=== PATIENT | male | born 1965 | race Caucasian/White ===

== ENCOUNTER 2016-05-06 10:23 | Inpatient (IN) | payer MEDICARE, MEDICAID ==
[2016-05-06] MEDS ORDERED: Scopolamine 1.5 MG Transdermal Patch TOP SCH (17:00)
[2016-05-06] MEDS ORDERED: cefTAZidime 1 GM Vial IV SCH (17:00)
[2016-05-06] MEDS ORDERED: Vancomycin 1 GM SDV IV SCH (17:00)
[2016-05-06] MEDS: Sodium Chloride 0.9% 10 ML Syringe IV PRN ×3 (17:54→23:10)
[2016-05-06] MEDS: Omeprazole 20 MG Cap.CR PO SCH (17:57)
[2016-05-06] MEDS: Cholecalciferol (Vitamin D3) 1,000 Unit Tab PO SCH (17:57)
[2016-05-06] MEDS: metFORMIN 500 MG Tab PO SCH (17:57)
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
[2016-05-06] MEDS: Oxybutynin 5 MG Tab PO SCH (20:06)
[2016-05-06] MEDS: ClonazePAM 0.5 MG Tab PO SCH (20:06)
[2016-05-06] MEDS: Baclofen 10 MG Tab PO SCH (20:06)
[2016-05-07] MEDS: MAG CARB IRR SCH (09:15)
[2016-05-07] MEDS: metFORMIN 500 MG Tab PO SCH ×2 (09:15→18:05)
[2016-05-07] MEDS: Ferrous Sulfate 325 MG Tab PO SCH (09:15)
[2016-05-07] MEDS: Omeprazole 20 MG Cap.CR PO SCH ×2 (09:15→18:05)
[2016-05-07] MEDS: CITRIC AC IRR SCH (09:15)
[2016-05-07] MEDS: GLUCONOLACT IRR SCH (09:15)
[2016-05-07] MEDS: ClonazePAM 0.5 MG Tab PO SCH ×4 (09:16→19:38)
[2016-05-07] MEDS: Oxybutynin 5 MG Tab PO SCH ×4 (09:16→19:38)
[2016-05-07] MEDS: Baclofen 10 MG Tab PO SCH ×4 (09:16→19:38)
[2016-05-07] MEDS: Aspirin 81 MG Tab.EC PO SCH (09:16)
[2016-05-07] MEDS: Pravastatin 20 MG Tab PO SCH (09:17)
[2016-05-07] MEDS: Multivitamin Tab PO SCH (09:17)
[2016-05-07] MEDS: Cholecalciferol (Vitamin D3) 1,000 Unit Tab PO SCH ×2 (09:18→18:04)
[2016-05-07] MEDS: Sodium Chloride 0.9% 10 ML Syringe FLUSH PRN ×5 (09:28→21:43)
[2016-05-07] MEDS: Calcium Carbonate 500 MG Tab.Chew PO PRN (13:25)
[2016-05-08] MEDS: Sodium Chloride 0.9% 10 ML Syringe FLUSH PRN ×8 (02:55→23:19)
[2016-05-08] MEDS: Omeprazole 20 MG Cap.CR PO SCH ×2 (08:22→17:41)
[2016-05-08] MEDS: Ferrous Sulfate 325 MG Tab PO SCH (08:23)
[2016-05-08] MEDS: metFORMIN 500 MG Tab PO SCH ×2 (08:23→17:41)
[2016-05-08] MEDS: Oxybutynin 5 MG Tab PO SCH ×4 (08:24→19:25)
[2016-05-08] MEDS: Multivitamin Tab PO SCH (08:24)
[2016-05-08] MEDS: ClonazePAM 0.5 MG Tab PO SCH ×4 (08:24→19:25)
[2016-05-08] MEDS: Aspirin 81 MG Tab.EC PO SCH (08:24)
[2016-05-08] MEDS: Topiramate 100 MG Tab PO SCH (08:25)
[2016-05-08] MEDS: Cholecalciferol (Vitamin D3) 1,000 Unit Tab PO SCH ×2 (08:25→17:41)
[2016-05-08] MEDS: Baclofen 10 MG Tab PO SCH ×4 (08:26→19:25)
[2016-05-08] MEDS: Pravastatin 20 MG Tab PO SCH (08:26)
[2016-05-08 20:49] LABS: CHLORIDE,CL 108 mmol/L (98-107); SODIUM,NA 142 mmol/L (136-145)
[2016-05-09] MEDS: Sodium Chloride 0.9% 10 ML Syringe FLUSH PRN ×4 (05:11→22:35)
[2016-05-09] MEDS: metFORMIN 500 MG Tab PO SCH ×2 (09:00→17:34)
[2016-05-09] MEDS: Cholecalciferol (Vitamin D3) 1,000 Unit Tab PO SCH ×2 (09:00→17:34)
[2016-05-09] MEDS: Oxybutynin 5 MG Tab PO SCH ×4 (09:01→20:26)
[2016-05-09] MEDS: Pravastatin 20 MG Tab PO SCH (09:01)
[2016-05-09] MEDS: Aspirin 81 MG Tab.EC PO SCH (09:01)
[2016-05-09] MEDS: Omeprazole 20 MG Cap.CR PO SCH ×2 (09:02→17:34)
[2016-05-09] MEDS: Multivitamin Tab PO SCH (09:02)
[2016-05-09] MEDS: Ferrous Sulfate 325 MG Tab PO SCH (09:02)
[2016-05-09] MEDS: Baclofen 10 MG Tab PO SCH ×4 (09:03→20:26)
[2016-05-09] MEDS: ClonazePAM 0.5 MG Tab PO SCH ×4 (09:03→20:27)
[2016-05-09] MEDS: CITRIC AC IRR SCH (09:06)
[2016-05-09] MEDS: GLUCONOLACT IRR SCH (09:06)
[2016-05-09] MEDS: MAG CARB IRR SCH (09:06)
[2016-05-10] MEDS: Pravastatin 20 MG Tab PO SCH (08:53)
[2016-05-10] MEDS: Ferrous Sulfate 325 MG Tab PO SCH (08:54)
[2016-05-10] MEDS: Omeprazole 20 MG Cap.CR PO SCH ×2 (08:54→17:28)
[2016-05-10] MEDS: Aspirin 81 MG Tab.EC PO SCH (08:55)
[2016-05-10] MEDS: Cholecalciferol (Vitamin D3) 1,000 Unit Tab PO SCH ×2 (08:55→17:28)
[2016-05-10] MEDS: metFORMIN 500 MG Tab PO SCH ×2 (08:55→17:28)
[2016-05-10] MEDS: Multivitamin Tab PO SCH (08:55)
[2016-05-10] MEDS: Baclofen 10 MG Tab PO SCH ×4 (08:55→20:14)
[2016-05-10] MEDS: ClonazePAM 0.5 MG Tab PO SCH ×4 (08:56→20:15)
[2016-05-10] MEDS: Oxybutynin 5 MG Tab PO SCH ×4 (08:57→20:13)
[2016-05-10] MEDS: Sodium Chloride 0.9% 10 ML Syringe FLUSH PRN ×3 (14:09→22:01)
[2016-05-11] MEDS: Sodium Chloride 0.9% 10 ML Syringe FLUSH PRN ×7 (03:56→22:28)
[2016-05-11] MEDS: Baclofen 10 MG Tab PO SCH ×4 (08:50→20:49)
[2016-05-11] MEDS: Omeprazole 20 MG Cap.CR PO SCH ×2 (08:55→17:03)
[2016-05-11] MEDS: Ferrous Sulfate 325 MG Tab PO SCH (08:55)
[2016-05-11] MEDS: Multivitamin Tab PO SCH (08:55)
[2016-05-11] MEDS: Oxybutynin 5 MG Tab PO SCH ×4 (08:56→20:49)
[2016-05-11] MEDS: ClonazePAM 0.5 MG Tab PO SCH ×4 (08:56→20:49)
[2016-05-11] MEDS: Pravastatin 20 MG Tab PO SCH (08:56)
[2016-05-11] MEDS: Cholecalciferol (Vitamin D3) 1,000 Unit Tab PO SCH ×2 (08:56→17:03)
[2016-05-11] MEDS: Aspirin 81 MG Tab.EC PO SCH (08:57)
[2016-05-11] MEDS: metFORMIN 500 MG Tab PO SCH ×2 (09:09→17:03)
[2016-05-11] MEDS: MAG CARB IRR SCH (09:09)
[2016-05-11] MEDS: CITRIC AC IRR SCH (09:09)
[2016-05-11] MEDS: GLUCONOLACT IRR SCH (09:09)
[2016-05-11] MEDS: Vancomycin 1.5 GM in Sodium Chloride 0.9% 500 ML IV SCH (21:56)
[2016-05-12] MEDS: Sodium Chloride 0.9% 10 ML Syringe FLUSH PRN ×4 (06:35→22:01)
[2016-05-12] MEDS: metFORMIN 500 MG Tab PO SCH ×2 (08:55→18:27)
[2016-05-12] MEDS: Omeprazole 20 MG Cap.CR PO SCH ×2 (08:55→18:27)
[2016-05-12] MEDS: Ferrous Sulfate 325 MG Tab PO SCH (08:55)
[2016-05-12] MEDS: Aspirin 81 MG Tab.EC PO SCH (08:55)
[2016-05-12] MEDS: Baclofen 10 MG Tab PO SCH ×4 (08:55→19:30)
[2016-05-12] MEDS: ClonazePAM 0.5 MG Tab PO SCH ×4 (08:55→19:30)
[2016-05-12] MEDS: Pravastatin 20 MG Tab PO SCH (08:56)
[2016-05-12] MEDS: Multivitamin Tab PO SCH (08:57)
[2016-05-12] MEDS: Topiramate 100 MG Tab PO SCH (08:57)
[2016-05-12] MEDS: Cholecalciferol (Vitamin D3) 1,000 Unit Tab PO SCH ×2 (08:57→18:27)
[2016-05-12] MEDS: Oxybutynin 5 MG Tab PO SCH ×4 (08:58→19:30)
[2016-05-12] MEDS: Vancomycin 1.5 GM in Sodium Chloride 0.9% 500 ML IV SCH (15:42)
[2016-05-12] MEDS ORDERED: Calcium Carbonate 750 MG Tab.Chew PO PRN (18:30)
[2016-05-12] MEDS: Calcium Carbonate 500 MG Tab.Chew PO PRN (18:36)
[2016-05-13] MEDS: Multivitamin Tab PO SCH (09:55)
[2016-05-13] MEDS: Ferrous Sulfate 325 MG Tab PO SCH (09:55)
[2016-05-13] MEDS: metFORMIN 500 MG Tab PO SCH ×2 (09:55→17:01)
[2016-05-13] MEDS: Aspirin 81 MG Tab.EC PO SCH (09:57)
[2016-05-13] MEDS: Pravastatin 20 MG Tab PO SCH (09:58)
[2016-05-13] MEDS: Baclofen 10 MG Tab PO SCH ×4 (09:58→20:19)
[2016-05-13] MEDS: Oxybutynin 5 MG Tab PO SCH ×4 (09:58→20:19)
[2016-05-13] MEDS: ClonazePAM 0.5 MG Tab PO SCH ×4 (09:59→20:19)
[2016-05-13] MEDS: Cholecalciferol (Vitamin D3) 1,000 Unit Tab PO SCH ×2 (09:59→17:01)
[2016-05-13] MEDS: MAG CARB IRR SCH (10:23)
[2016-05-13] MEDS: Omeprazole 20 MG Cap.CR PO SCH ×2 (10:23→16:56)
[2016-05-13] MEDS: GLUCONOLACT IRR SCH (10:23)
[2016-05-13] MEDS: CITRIC AC IRR SCH (10:23)
[2016-05-13] MEDS: Vancomycin 1.5 GM in Sodium Chloride 0.9% 500 ML IV SCH (10:42)
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
[2016-05-14] MEDS: Vancomycin 1.5 GM in Sodium Chloride 0.9% 500 ML IV SCH ×2 (04:25→22:27)
[2016-05-14] MEDS: Sodium Chloride 0.9% 10 ML Syringe FLUSH PRN ×2 (07:49→14:56)
[2016-05-14] MEDS: Cholecalciferol (Vitamin D3) 1,000 Unit Tab PO SCH ×2 (07:53→17:32)
[2016-05-14] MEDS: Oxybutynin 5 MG Tab PO SCH ×4 (07:53→19:49)
[2016-05-14] MEDS: Ferrous Sulfate 325 MG Tab PO SCH (07:54)
[2016-05-14] MEDS: Baclofen 10 MG Tab PO SCH ×4 (07:54→19:49)
[2016-05-14] MEDS: Multivitamin Tab PO SCH (07:54)
[2016-05-14] MEDS: Pravastatin 20 MG Tab PO SCH (07:55)
[2016-05-14] MEDS: Omeprazole 20 MG Cap.CR PO SCH ×2 (07:55→17:32)
[2016-05-14] MEDS: metFORMIN 500 MG Tab PO SCH ×2 (07:55→17:31)
[2016-05-14] MEDS: ClonazePAM 0.5 MG Tab PO SCH ×4 (07:55→19:49)
[2016-05-14] MEDS: Aspirin 81 MG Tab.EC PO SCH (07:56)
[2016-05-15] MEDS: Sodium Chloride 0.9% 10 ML Syringe FLUSH PRN ×5 (01:00→22:01)
[2016-05-15] MEDS: Baclofen 10 MG Tab PO SCH ×4 (08:56→19:41)
[2016-05-15] MEDS: Ferrous Sulfate 325 MG Tab PO SCH (08:56)
[2016-05-15] MEDS: metFORMIN 500 MG Tab PO SCH ×2 (08:58→17:27)
[2016-05-15] MEDS: Omeprazole 20 MG Cap.CR PO SCH ×2 (08:58→17:27)
[2016-05-15] MEDS: Aspirin 81 MG Tab.EC PO SCH (08:58)
[2016-05-15] MEDS: Cholecalciferol (Vitamin D3) 1,000 Unit Tab PO SCH ×2 (08:58→17:27)
[2016-05-15] MEDS: ClonazePAM 0.5 MG Tab PO SCH ×4 (08:58→19:41)
[2016-05-15] MEDS: Pravastatin 20 MG Tab PO SCH (08:58)
[2016-05-15] MEDS: Multivitamin Tab PO SCH (08:58)
[2016-05-15] MEDS: Oxybutynin 5 MG Tab PO SCH ×4 (08:59→19:42)
[2016-05-15] MEDS: CITRIC AC IRR SCH (09:00)
[2016-05-15] MEDS: MAG CARB IRR SCH (09:00)
[2016-05-15] MEDS: Topiramate 100 MG Tab PO SCH (09:00)
[2016-05-15] MEDS: GLUCONOLACT IRR SCH (09:00)
[2016-05-15] MEDS: Vancomycin 1.5 GM in Sodium Chloride 0.9% 500 ML IV SCH (16:13)
[2016-05-15] MEDS: Calcium Carbonate 500 MG Tab.Chew PO PRN (19:42)
[2016-05-16] MEDS: Sodium Chloride 0.9% 10 ML Syringe FLUSH PRN ×6 (06:03→21:59)
[2016-05-16] MEDS: Oxybutynin 5 MG Tab PO SCH ×4 (08:36→19:42)
[2016-05-16] MEDS: Pravastatin 20 MG Tab PO SCH (08:36)
[2016-05-16] MEDS: Omeprazole 20 MG Cap.CR PO SCH ×2 (08:37→17:10)
[2016-05-16] MEDS: Multivitamin Tab PO SCH (08:37)
[2016-05-16] MEDS: ClonazePAM 0.5 MG Tab PO SCH ×4 (08:37→19:39)
[2016-05-16] MEDS: Ferrous Sulfate 325 MG Tab PO SCH (08:37)
[2016-05-16] MEDS: Aspirin 81 MG Tab.EC PO SCH (08:37)
[2016-05-16] MEDS: Baclofen 10 MG Tab PO SCH ×4 (08:37→19:41)
[2016-05-16] MEDS: Cholecalciferol (Vitamin D3) 1,000 Unit Tab PO SCH ×2 (08:37→17:10)
[2016-05-16] MEDS: metFORMIN 500 MG Tab PO SCH ×2 (08:38→17:10)
[2016-05-16] MEDS: Vancomycin 1.5 GM in Sodium Chloride 0.9% 500 ML IV SCH (10:58)
[2016-05-17] MEDS: Vancomycin 1.5 GM in Sodium Chloride 0.9% 500 ML IV SCH ×2 (04:17→21:43)
[2016-05-17] MEDS: Sodium Chloride 0.9% 10 ML Syringe FLUSH PRN ×3 (04:17→07:37)
[2016-05-17] MEDS: Ferrous Sulfate 325 MG Tab PO SCH (08:56)
[2016-05-17] MEDS: ClonazePAM 0.5 MG Tab PO SCH ×4 (08:56→19:24)
[2016-05-17] MEDS: Aspirin 81 MG Tab.EC PO SCH (08:56)
[2016-05-17] MEDS: Pravastatin 20 MG Tab PO SCH (08:56)
[2016-05-17] MEDS: Omeprazole 20 MG Cap.CR PO SCH ×2 (08:56→17:12)
[2016-05-17] MEDS: Multivitamin Tab PO SCH (08:56)
[2016-05-17] MEDS: Oxybutynin 5 MG Tab PO SCH ×4 (08:57→19:24)
[2016-05-17] MEDS: metFORMIN 500 MG Tab PO SCH ×2 (08:57→17:12)
[2016-05-17] MEDS: Cholecalciferol (Vitamin D3) 1,000 Unit Tab PO SCH ×2 (08:57→17:12)
[2016-05-17] MEDS: Baclofen 10 MG Tab PO SCH ×4 (08:58→19:24)
[2016-05-17] MEDS: GLUCONOLACT IRR SCH (09:11)
[2016-05-17] MEDS: MAG CARB IRR SCH (09:11)
[2016-05-17] MEDS: CITRIC AC IRR SCH (09:11)
[2016-05-18] MEDS: Aspirin 81 MG Tab.EC PO SCH (09:01)
[2016-05-18] MEDS: Multivitamin Tab PO SCH (09:01)
[2016-05-18] MEDS: metFORMIN 500 MG Tab PO SCH ×2 (09:01→17:00)
[2016-05-18] MEDS: ClonazePAM 0.5 MG Tab PO SCH ×4 (09:01→19:42)
[2016-05-18] MEDS: Baclofen 10 MG Tab PO SCH ×4 (09:02→19:42)
[2016-05-18] MEDS: Oxybutynin 5 MG Tab PO SCH ×4 (09:02→19:42)
[2016-05-18] MEDS: Cholecalciferol (Vitamin D3) 1,000 Unit Tab PO SCH ×2 (09:02→17:00)
[2016-05-18] MEDS: Ferrous Sulfate 325 MG Tab PO SCH (09:03)
[2016-05-18] MEDS: Pravastatin 20 MG Tab PO SCH (09:03)
[2016-05-18] MEDS: Omeprazole 20 MG Cap.CR PO SCH ×2 (09:04→17:00)
[2016-05-18] MEDS: Vancomycin 1.5 GM in Sodium Chloride 0.9% 500 ML IV SCH (16:46)
[2016-05-18] MEDS: Sodium Chloride 0.9% 10 ML Syringe FLUSH PRN ×2 (21:18→22:00)
[2016-05-19] MEDS: Sodium Chloride 0.9% 10 ML Syringe FLUSH PRN ×4 (06:19→23:04)
[2016-05-19] MEDS: Multivitamin Tab PO SCH (08:02)
[2016-05-19] MEDS: Oxybutynin 5 MG Tab PO SCH ×4 (08:03→19:46)
[2016-05-19] MEDS: Cholecalciferol (Vitamin D3) 1,000 Unit Tab PO SCH ×2 (08:03→17:39)
[2016-05-19] MEDS: ClonazePAM 0.5 MG Tab PO SCH ×4 (08:03→19:46)
[2016-05-19] MEDS: Omeprazole 20 MG Cap.CR PO SCH ×2 (08:04→16:35)
[2016-05-19] MEDS: Aspirin 81 MG Tab.EC PO SCH (08:04)
[2016-05-19] MEDS: Topiramate 100 MG Tab PO SCH (08:05)
[2016-05-19] MEDS: Pravastatin 20 MG Tab PO SCH (08:05)
[2016-05-19] MEDS: Ferrous Sulfate 325 MG Tab PO SCH (08:06)
[2016-05-19] MEDS: metFORMIN 500 MG Tab PO SCH ×2 (08:07→17:39)
[2016-05-19] MEDS: Baclofen 10 MG Tab PO SCH ×4 (08:07→19:46)
[2016-05-19] MEDS: GLUCONOLACT IRR SCH (11:50)
[2016-05-19] MEDS: CITRIC AC IRR SCH (11:50)
[2016-05-19] MEDS: Vancomycin 1.5 GM in Sodium Chloride 0.9% 500 ML IV SCH (11:50)
[2016-05-19] MEDS: MAG CARB IRR SCH (11:50)
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
[2016-05-20] MEDS: Vancomycin 1.5 GM in Sodium Chloride 0.9% 500 ML IV SCH (03:41)
[2016-05-20] MEDS: Sodium Chloride 0.9% 10 ML Syringe FLUSH PRN ×2 (03:48→06:13)
[2016-05-20] MEDS: ClonazePAM 0.5 MG Tab PO SCH (08:34)
[2016-05-20] MEDS: Omeprazole 20 MG Cap.CR PO SCH (08:34)
[2016-05-20] MEDS: Pravastatin 20 MG Tab PO SCH (08:34)
[2016-05-20] MEDS: Aspirin 81 MG Tab.EC PO SCH (08:34)
[2016-05-20] MEDS: metFORMIN 500 MG Tab PO SCH (08:34)
[2016-05-20] MEDS: Baclofen 10 MG Tab PO SCH (08:34)
[2016-05-20] MEDS: Ferrous Sulfate 325 MG Tab PO SCH (08:34)
[2016-05-20] MEDS: Oxybutynin 5 MG Tab PO SCH (08:34)
[2016-05-20] MEDS: Multivitamin Tab PO SCH (08:34)
[2016-05-20] MEDS: Cholecalciferol (Vitamin D3) 1,000 Unit Tab PO SCH (08:34)
--- NOTE | 2016-05-20 08:43 | PCM.DCSUM1 ---
Discharge Summary - Discharge Data Discharge Date: 05/20/16 Discharge Disposition: Home, Self-Care 01 Condition: Good - Discharge Diagnosis/Problem(s) (1) Decubitus ulcer, stage 4 with infection SNOMED Code(s): 9929363, 852556807 ICD Code: L89.94 - PRESSURE ULCER OF UNSPECIFIED SITE, STAGE 4 Status: Acute Priority: High Current Visit: Yes (2) Paraplegia following spinal cord injury SNOMED Code(s): 31462313, 83817977 ICD Code: G82.20 - PARAPLEGIA, UNSPECIFIED Status: Acute Priority: High Current Visit: Yes (3) Migraine syndrome SNOMED Code(s): 25730681 ICD Code: G43.909 - MIGRAINE, UNSP, NOT INTRACTABLE, WITHOUT STATUS MIGRAINOSUS Status: Acute Priority: Medium Current Visit: Yes (4) Diabetes mellitus SNOMED Code(s): 87235152 ICD Code: E11.9 - TYPE 2 DIABETES MELLITUS WITHOUT COMPLICATIONS Status: Acute Priority: High Current Visit: Yes Qualifiers: Diabetes mellitus type: type 2 Diabetes mellitus complication status: without complication Diabetes mellitus shelter insulin use: without shelter use Qualified Code(s): E11.9 - Type 2 diabetes mellitus without complications (5) GERD (gastroesophageal reflux disease) SNOMED Code(s): 188625449 ICD Code: K21.9 - GASTRO-ESOPHAGEAL REFLUX DISEASE WITHOUT ESOPHAGITIS Status: Acute Priority: Medium Current Visit: Yes Qualifiers: Esophagitis presence: without esophagitis Qualified Code(s): K21.9 - Gastro -esophageal reflux disease without esophagitis (6) Hyperlipemia SNOMED Code(s): 11192276 ICD Code: E78.5 - HYPERLIPIDEMIA, UNSPECIFIED Status: Acute Priority: Medium Current Visit: Yes (7) Anemia, iron deficiency SNOMED Code(s): 99881112 ICD Code: D50.9 - IRON DEFICIENCY ANEMIA, UNSPECIFIED Status: Acute Priority: High Current Visit: Yes Qualifiers: Iron deficiency anemia type: unspecified iron deficiency Qualified Code(s) : D50.9 - Iron deficiency anemia, unspecified - Patient Summary/Data Consults: Consultations 05/06/16 16:47 Consult to Case Management [CONS] Routine OT Evaluation and Treatment [CONS] Routine PT Evaluation and Treatment [CONS] Routine - Patient Instructions Diet: Diabetic Diet Activity: Bedrest (Per your plastic surgeon's instructions) Driving: May Drive Today Showering/Bathing: May Shower Wound/Incision Care: Keep Operative Site/Wound Site Clean and Dry Notify Provider of: Fever, Drainage Other/Special Instructions: Follow up at the wound clinic. Call and make an appointment. Follow up with your plastic surgeon with appointment already made. - Discharge Plan Home Medications: Home Meds Aspirin [Adult Low Dose Aspirin EC] 81 mg PO DAILY 05/06/16 [History] Baclofen 20 mg PO QID 05/06/16 [History] Calcium Carbonate [Tums] 1,000 mg PO Q6HR PRN 05/06/16 [History] Cholecalciferol (Vitamin D3) [Vitamin D3] 1,000 unit PO BID 05/06/16 [History] Citric AC/Gluconolact/Mag Carb [Renacidin Irrigation Solution] 15 ml IRR Q2D 03/24 [History] ClonazePAM [KlonoPIN] 0.5 mg PO QID 05/06/16 [History] Ferrous Gluconate 1 tab PO DAILY 05/06/16 [History] Multivitamins [Tab-A-Eran] 1 tab PO DAILY 05/06/16 [History] Omeprazole 20 mg PO BIDAC 05/06/16 [History] Oxybutynin 5 mg PO QID 05/06/16 [History] Pravastatin [Pravachol] 20 mg PO DAILY 05/06/16 [History] Topiramate [Topamax] 200 mg PO TUFR@0800 05/06/16 [History] metFORMIN [Glucophage] 500 mg PO BID 05/06/16 [History] Patient Handouts: How to Prevent Pressure Injuries Referrals: Sheets-Brenda Conrad MD [Physician] - - Discharge Summary/Plan Comment DC Time >30 min.: No - Patient Data Vitals - Most Recent: Last Vital Signs Temp 98.2 F 05/19/16 20:00 Pulse 62 05/19/16 20:00 Resp 16 05/19/16 20:00 BP 122/65 05/19/16 20:00 Pulse Ox 97 05/19/16 20:00 Weight - Most Recent: 217 lb 15.995 oz I&O - Last 24 hours: Intake & Output 05/19/16 05/20/16 05/20/16 22:59 06:59 14:59 Intake Total 400 870 Output Total 700 250 Balance -300 620 Lab Results - Last 24 hrs: Laboratory Results - last 24 hr 05/19/16 05/19/16 Range/Units 10:55 15:31 POC Glucose 73 83 (65-110) mg/dl Med Orders - Current: Current Medications Aspirin (Halfprin) 81 mg PO DAILY [facility] Last Admin: 05/20/16 08:34 Dose: 81 mg Baclofen (Lioresal) 20 mg PO QID [facility] Last Admin: 05/20/16 08:34 Dose: 20 mg Calcium Carbonate/Glycine (Tums) 1,000 mg PO Q6HR PRN PRN Reason: HEARTBURN/INDIGESTION Last Admin: 05/15/16 19:42 Dose: 1,000 mg Cholecalciferol (Vitamin D3) 1,000 units PO BID [facility] Last Admin: 05/20/16 08:34 Dose: 1,000 units Clonazepam (Klonopin) 0.5 mg PO QID [facility] Last Admin: 05/20/16 08:34 Dose: 0.5 mg Ferrous Sulfate (Ferrous Sulfate) 325 mg PO DAILY [facility] Last Admin: 05/20/16 08:34 Dose: 325 mg Heparin Sodium (Porcine) (Heparin Lock Flush 100 Units/Ml Syringe) 300 units FLUSH ASDIRECTED PRN PRN Reason: Keep Vein Open Last Admin: 05/19/16 23:04 Dose: 300 units Metformin HCl (Glucophage) 500 mg PO BID [facility] Last Admin: 05/20/16 08:34 Dose: 500 mg Multivitamins/Minerals/Vitamin C (Tab-A-Eran) 1 tab PO DAILY [facility] Last Admin: 05/20/16 08:34 Dose: 1 tab Citric Ac/Gluconolact/Mag Carb [Renacidin Irrigation Solution] 15 ml IRR Q2D [facility] Last Admin: 05/19/16 11:50 Dose: 15 ml Omeprazole (Omeprazole) 20 mg PO BIDAC [facility] Last Admin: 05/20/16 08:34 Dose: 20 mg Oxybutynin Chloride (Oxybutynin) 5 mg PO QID [facility] Last Admin: 05/20/16 08:34 Dose: 5 mg Pravastatin Sodium (Pravachol) 20 mg PO DAILY [facility] Last Admin: 05/20/16 08:34 Dose: 20 mg Sodium Chloride (Saline Flush) 10 ml FLUSH ASDIRECTED PRN PRN Reason: Keep Vein Last Admin: 05/20/16 06:13 Dose: 10 ml Topiramate (Topamax) 200 mg PO TUFR@0800 [facility] Last Admin: 05/19/16 08:05 Dose: 200 mg Vancomycin HCl (Pharmacy To Dose - Vancomycin) dose .XX ASDIRECTED [facility] Discontinued Medications Calcium Carbonate/Glycine (Tums Extra Strength) 750 mg PO Q2HR PRN PRN Reason: Indigestion Ceftazidime (Fortaz) 2 gm IV Q8H [facility] Stop: 05/20/16 16:00 Last Admin: 05/06/16 17:57 Dose: Not Given Ceftazidime 2 gm/ Sodium (Chloride) 100 mls @ 200 mls/hr IV ONETIME ONE Stop: 05/06/16 17:59 Last Admin: 05/06/16 17:54 Dose: 200 mls/hr Ceftazidime 2 gm/ Sodium (Chloride) 100 mls @ 200 mls/hr IV Q8H [facility] Stop: 05/20/16 06:30 Last Admin: 05/20/16 06:12 Dose: 200 mls/hr Vancomycin HCl 1 gm/ Sodium (Chloride) 250 mls @ 165 mls/hr IV ONETIME ONE Stop: 05/06/16 19:30 Last Admin: 05/06/16 18:54 Dose: 165 mls/hr Vancomycin HCl 1 gm/ Sodium (Chloride) 250 mls @ 165 mls/hr IV Q18H [facility] Stop: 05/19/16 09:01 Last Admin: 05/12/16 01:51 Dose: Not Given Vancomycin HCl 1.5 gm/ Sodium (Chloride) 500 mls @ 220 mls/hr IV Q18H [facility] Stop: 05/20/16 06:00 Last Admin: 05/20/16 03:41 Dose: 220 mls/hr Miscellaneous Information (Remove Patch) ea TOP Q3D [facility] Scopolamine (Transderm-Scop) mg TOP Q3D [facility] Sodium Chloride (Saline Flush) 10 ml IV ASDIRECTED PRN PRN Reason: Keep Vein Last Admin: 05/06/16 23:10 Dose: 10 ml Vancomycin HCl (Vancomycin) 1 gm IV ASDIRECTED [facility] *Q Meaningful Use (DIS) - VTE *Q VTE Criteria *Q: - Stroke *Q Stroke Criteria *Q: - AMI *Q AMI Criteria *Q:
[2016-05-20 11:02] VITALS: BP 105/67
== END 2016-05-20 10:07 | disposition home or self-care (01) | DRG 592 ==
LOC: LL.MS 12:00
PROVIDERS: ADMIT Family Medicine; ATTEND Family Medicine
PROC: 0HDMXZZ Extraction of Right Foot Skin, External Approach (ICD-10-PCS; principal; 2016-05-13)
DX: L89.214 Pressure ulcer of right hip, stage 4 (principal); G82.20 Paraplegia, unspecified; L89.153 Pressure ulcer of sacral region, stage 3; E11.621 Type 2 diabetes mellitus with foot ulcer; L97.519 Non-pressure chronic ulcer of other part of right foot with unspecified severity; Z79.84 Long term (current) use of oral hypoglycemic drugs; G43.909 Migraine, unspecified, not intractable, without status migrainosus; D50.9 Iron deficiency anemia, unspecified; K21.9 Gastro-esophageal reflux disease without esophagitis; N31.9 Neuromuscular dysfunction of bladder, unspecified; Z87.440 Personal history of urinary (tract) infections; E78.5 Hyperlipidemia, unspecified; H54.7 Unspecified visual loss; Z86.14 Personal history of Methicillin resistant Staphylococcus aureus infection; Z87.891 Personal history of nicotine dependence; Z93.3 Colostomy status; Z79.82 Long term (current) use of aspirin; Z88.1 Allergy status to other antibiotic agents; Z88.0 Allergy status to penicillin; Z88.2 Allergy status to sulfonamides
CPT/HCPCS: 36415; 80053; 80202; 82565; 82962; 83735; 84450; 85025; 86140; 97110-GP; 97161-GP; 97165-GO; 97530-GP; A9270-GY; J0713; J1642; J3370; J7040; J7050